=== PATIENT | male | born 2000 | race Caucasian/White ===

== ENCOUNTER → 2024-09-12 | Outpatient (CLI) | LOC: M SOG 11:19 | PROVIDERS: ATTEND Orthopaedic Surgery Hand Surgery | DX: M79.641 Pain in right hand (principal) ==

== ENCOUNTER 2024-09-16 09:21 | Day surgery (SDC) | payer OTHER ==
[~2024-09-16] VITALS: Ht 165.1 cm; Wt 85.4 kg
[2024-09-16] MEDS: LIDOCAINE W/EPINEPHRINE 1% 20ML VIAL XX ONE (10:47)
[2024-09-16] MEDS: SODIUM BICARBONATE 8.4% INJ 50MEQ/50ML VIAL XX ONE (10:47)
[2024-09-16] MEDS: BACITRACIN OINTMENT 30GM TUBE As Ordered ONE (12:58)
[2024-09-16 13:05] VITALS: BP 120/73; TEMP 98.7; O2SAT 98
== END 2024-09-16 13:13 | disposition home or self-care (01) ==
LOC: M SDC 09:21
PROVIDERS: ATTEND Orthopaedic Surgery Hand Surgery
DX: M67.441 Ganglion, right hand (principal)

== ENCOUNTER 2025-01-31 01:39 | Emergency (ER) | payer OTHER ==
[~2025-01-31] VITALS: Ht 165.1 cm; Wt 81.2 kg
[2025-01-31 01:41] VITALS: BP 114/68; TEMP 96.9; O2SAT 100
[2025-01-31 02:27] LABS: BASO # 0.1 10^3/uL (0.0-0.2); BASO % 0.8 % (0.0-1.0); EOS # 0.1 10^3/uL (0.0-0.5); EOS % 1.4 % (0.0-3.0); LYMPH # 5.3 10^3/uL (1.5-5.0); LYMPH % 51.7 % (24.0-44.0); MONO # 1.0 10^3/uL (0.0-0.8); MONO % 9.7 % (2.0-8.0); NEUTROPHILS # 3.7 10^3/uL (1.5-8.5); NEUTROPHILS % 36.2 % (36.0-66.0); PLATELET COUNT, AUTOMATED 260 10^3/uL (150-450)
[2025-01-31 02:48] LABS: KETONE, URINE AUTO RFX NEGATIVE (NEGATIVE); LEUKOCYTE ESTERASE UR AUTO RFX NEGATIVE (NEGATIVE); MUCUS, URINE RFX SMALL (NEGATIVE); NITRITE, URINE AUTO RFX NEGATIVE (NEGATIVE); RBC, URINE AUTO RFX 104 /HPF (0-3); SQUAM EPITHELIAL CELL UR AURFX 0 /HPF (0-6); WBC, URINE AUTO RFX 1 /HPF (0-3)
[2025-01-31 02:48] LABS: ALT/SGPT 23.0 U/L (7.0-40); AST/SGOT 21.0 U/L (<34); CALCIUM LEVEL 9.6 MG/DL (8.5-10.1); CARBON DIOXIDE LEVEL 27.0 MMOL/L (20-31); CHLORIDE LEVEL 104.0 MMOL/L (98-107); CREATININE FOR GFR 1.32 MG/DL (0.70-1.30); GLOMERULAR FILTRATION RATE 78.2 (>60); POTASSIUM SERUM 3.7 MMOL/L (3.5-5.1); SODIUM LEVEL 143.0 MMOL/L (136-145)
== END 2025-01-31 03:07 | disposition left against medical advice (07) ==
LOC: M ED 01:39
DX: Z53.21 Procedure and treatment not carried out due to patient leaving prior to being seen by health care provider (principal)